=== PATIENT | male | born 1985 | race Caucasian/White ===

== ENCOUNTER 2022-06-30 12:52 | Emergency (ER) | payer OTHER ==
[~2022-06-30 12:52] MED LIST: COREG 3.125M3.125 MG PO; PERCOCET 5-3251 EACH PO; PRINIVIL10 MG PO; ULTRAM50 MG PO
[2022-06-30 13:24] LABS: BASOPHIL 0.9 % (0-2); EOSINOPHIL 5.8 % (0-5); HCT 42.1 % (42.0-52.0); HGB 14.9 g/dl (13.2-18.0); MCH 31.4 pg (25.0-31.0); MCHC 35.4 g/dL (32.0-36.0); MCV 88.6 fL (78.0-100.0); MONOCYTE 9.1 % (0-12); MPV 9.8 fL (6.0-9.5); NEUTROPHIL 58.8 % (41-80); NRBC 0; PLT 276 K/uL (150-400); RBC 4.75 M/uL (4.70-6.00); RDW 12.1 % (11.5-14.0); WBC 8.5 K/uL (4.0-10.5)
[2022-06-30 13:39] LABS: INR 1.06 (0.9-1.2); PROTHROMBIN TIME 13.5 SECONDS (11.9-13.9)
[2022-06-30 14:08] LABS: ALBUMIN 3.7 g/dL (3.4-5.0); BILIRUBIN - TOTAL 0.6 mg/dL (0.2-1.0); CREATININE 1.12 mg/dL (0.67-1.17); GLOBULIN (CALCULATION) 3.3 g/dL; POTASSIUM 3.8 mmol/L (3.5-5.1)
== END 2022-06-30 18:20 | disposition other institution (70) ==
LOC: FER 12:52
PROVIDERS: Physician Assistant
DX: I25.110 Atherosclerotic heart disease of native coronary artery with unstable angina pectoris (principal); Z28.310 Unvaccinated for COVID-19; Z95.5 Presence of coronary angioplasty implant and graft
CPT/HCPCS: 36415; 71045; 80053; 84484; 85025; 85610; 93005; J2060